=== PATIENT | female | born 1960 | race Caucasian/White ===

== ENCOUNTER 2017-01-20 13:37 | Observation (INO) ==
[2017-01-20] MEDS ORDERED: *HR* HYDROmorphone (PF) 1 MG/ML SYRINGE IVP PRN ×3 (13:54→17:09)
[2017-01-20] MEDS ORDERED: Ondansetron 4 MG/2 ML VIAL IVP PRN ×2 (13:54→16:34)
[2017-01-20] MEDS ORDERED: *HR* OxyCODONE/APAP 5/325 TABLET PO PRN ×2 (13:54→16:34)
[2017-01-20] MEDS ORDERED: Naloxone 0.4 MG/ML INJ IVP PRN (13:54)
[2017-01-20] MEDS ORDERED: *HR* Promethazine 25 MG/ML VIAL IVP PRN ×3 (13:54→17:11)
--- NOTE | 2017-01-20 14:02 | Urology History & Physical ---
Date of Encounter: 01/20/17 Time of Encounter: 14:00 Assessment and Plan (1) Right ureteral stone Current Visit: Yes Status: Acute 56-year-old woman presents with a right flank pain secondary to a 1 cm right ureteropelvic junction stone. She'll be admitted for pain control. Her pain is not adequately improved by tomorrow, we will proceed with a cystoscopy and right ureteral stent placement. All risks of the surgery were informed. Dr. Kumar will be managing her care. (2) Diverticulitis Current Visit: Yes Status: Acute Her CT showed concern for diverticulitis. We will continue her on ciprofloxacin and Flagyl. Qualifiers: Qualified Code(s): K57.92 - Diverticulitis of intestine, part unspecified, without perforation or abscess without bleeding History of Present Illness Chief complaint: Right flank pain HPI: Ms. Melendrez is a 56 year old female who presents with a four-day history of right flank pain. The pain became more severe yesterday and she was seen at an outside hospital. A CT scan was performed. The CT showed a 1 cm stone at the right ureteropelvic junction. In addition, she had smaller stones within the left kidney. She describes the pain as being sharp and radiates to the her right groin. She has never had kidney stones in the past. She reports nausea. In addition she was diagnosed with diverticulitis and was started on ciprofloxacin and Flagyl. Past Med Surg Social Fam HX - Past Medical History Medical history: hypertension - Past Surgical History Surgical History: , cholecystectomy - Social History Alcohol use: unknown Drug use: unknown Current living situation: Home Activity Level: Independent ambulation - Family History Mother Hx Family Genitourinary Disorders: No (No stones) Review of Systems - Constitutional no chills, no fever(s) - EENT Nose, mouth and throat: no dizziness - Cardiovascular no chest pain - Respiratory no dyspnea - Gastrointestinal nausea, vomiting - Genitourinary Genitourinary: flank pain, no hematuria - Musculoskeletal no back pain - Integumentary no erythema, no rash - Neurological no weakness - Psychiatric no suicidal ideation - Hematologic/Lymphatic no easy bleeding - Allergic/Immunologic no wheezing Exam - General physical appearance Present: well developed, well nourished, no distress - Eyes Absent: icteric - ENT Present: normal nares - Neck Present: trachea midline - Respiratory Present: normal respiratory effort - Cardiovascular Cardiovascular exam IM: RRR - Abdomen Abdomen: Present: soft Urology Results - Labs All other labs normal. - Imaging CT scan - abdomen: report reviewed, image reviewed CT scan - pelvis: report reviewed, image reviewed
[2017-01-20 14:31] LABS: Basophils % 0.2 %; Eosinophils # 0.1 K/mcL (0.0-0.6); Eosinophils % 1.2 %; Hematocrit 40.7 % (35.3-44.9); Hemoglobin 13.2 g/dL (11.5-15.4); Immature Granulocytes % 0.3 % (0-4); Lymphocytes # 1.5 K/mcL (0.6-4.6); Lymphocytes % 15.5 %; Mean Corpuscular HGB Conc 32.4 g/dL (31.6-35.5); Mean Corpuscular Hemoglobin 26.9 pg (28.0-33.3); Mean Corpuscular Volume 83.1 fL (83.0-100.0); Mean Platelet Volume 9.6 fL (9.4-12.4); Monocytes # 0.5 K/mcL (0.0-1.3); Monocytes % 5.4 %; Neutrophils # 7.3 K/mcL (1.6-8.9); Platelet Count 269 K/mcL (140-400); Red Cell Distribution Width 13.1 % (11.5-14.5); Segmented Neutrophils % 77.4 %
[2017-01-20 14:42] LABS: Calcium 9.7 mg/dL (8.6-10.8); Potassium 4.6 mEq/L (3.5-4.5)
[2017-01-20] MEDS: 0.9 % Sodium Chloride 1,000 ML IVC SCH (17:28)
[2017-01-20] MEDS: *HR* OxyCODONE/APAP 5/325 TABLET PO PRN ×2 (17:28→23:11)
[2017-01-20] MEDS: metroNIDAZOLE 500 MG TABLET PO SCH ×2 (17:39→20:07)
--- NOTE | 2017-01-20 19:16 | Anesthesia Evaluation PreOp ---
Date of Encounter: 01/20/17 Time of Encounter: 19:15 - Past History Planned Operation: cystoscopy/SABRINA Cardiac History: HTN Pulmonary History: Snore SENIOR USER EXPERIENCE ARCHITECT History: Denies Any Significant HX Other Medical History: Other (concern for diverticulitis on CT) Anesthesia History: No Prior Anesthetic Complications, Past Anesthesia (c/s, cholecyst) Alcohol Use: occasionally Drug use: none Medications and Allergies Ciprofloxacin HCl [Cipro] 500 mg PO BID 01/20/17 [History] Ergocalciferol (VITAMIN D2) [Vitamin D2] 50,000 unit PO QWEEK 01/20/17 [History] Lisinopril [Zestril] 20 mg PO BID 01/20/17 [History] MetroNIDAZOLE [Flagyl] 500 mg PO TID 01/20/17 [History] Ondansetron ODT [Zofran ODT] 4 mg PO Q8H PRN 01/20/17 [History] Oxycodone HCl/Acetaminophen [Percocet 5-325 mg Tablet] 1 each PO Q6H PRN [History] Allergies No Known Allergies Allergy (Verified 01/20/17 16:00) - Meds/Allergy Pre-op Review Medications Reviewed: Yes Allergies Reviewed: Yes Beta Blockers on Current Med List: No Anesthesia Results - Labs 01/20/17 14:20 01/20/17 14:20 Anesthesia Exam Height: 1.55 Weight: 77 NPO (# of Hours): >8 - HEENT Pupil (Motor): Pupils equal, EOMI Mallampati: IV (, small mouth) Oral Opening: Less than or equal to 3 (poor underbite) - SENIOR USER EXPERIENCE ARCHITECT LOC: Oriented SENIOR USER EXPERIENCE ARCHITECT Motor: Normal RUE, Normal LUE, Normal RLE, Normal LLE, Normal Face SENIOR USER EXPERIENCE ARCHITECT Sensory: Normal: RUE, LUE, RLE, LLE, Face - Cardiac Rhythm: Regular Murmur: None - Pulmonary Breath Sounds: bilateral Clear Respiratory Effort: Symmetrical Anesthesia Assess/Plan ASA Score: 2 (Recommend awake look for difficult airway) Modified [place] Scale for Level of Consciousness: Cooperative, oriented, and tranquil Anesthetic Plan: General Monitoring Plan: Standard Monitors Recovery Plan: PACU
[2017-01-20 20:47] LABS: Bilirubin,Urine Negative (Negative); Blood,Urine Negative (Negative); Clarity,Urine Cloudy (Clear); Color,Urine Dark Yellow (Yellow); Glucose,Urine (UA) Normal (Normal); Ketones,Urine Negative (Negative); Leukocyte Esterase,Urine Small (Negative); Nitrite,Urine Negative (Negative); PH,Urine 5.5 pH Units (5.0-8.0); Protein,Urine 30 mg/dL (Neg-Trace); Specific Gravity,Urine 1.023 (1.010-1.025); Urobilinogen,Urine Normal (Normal)
[2017-01-20 20:48] LABS: Bacteria,Urine None Seen per hpf (None-Few); Hyaline Casts,Urine None Seen per lpf (None-Few); Squamous Epithelial Cell,Urine Many per lpf (None-Few)
[2017-01-21] MEDS: 0.9 % Sodium Chloride 1,000 ML IVC SCH (02:56)
[2017-01-21] MEDS: metroNIDAZOLE 500 MG TABLET PO SCH (09:00)
[2017-01-21] MEDS ORDERED: Famotidine 20 MG/2 ML VIAL ONE (10:40)
[2017-01-21] MEDS ORDERED: *HR* Midazolam HCl 2 MG/2 ML VIAL ONE (11:20)
[2017-01-21] MEDS ORDERED: Ondansetron 4 MG/2 ML VIAL ONE (11:20)
[2017-01-21] MEDS ORDERED: Lidocaine -MPF 2% 2 ML VIAL ONE (11:20)
[2017-01-21] MEDS ORDERED: *HR* Propofol 200 MG/20 ML VIAL IVP ONE (11:20)
[2017-01-21] MEDS ORDERED: Dexamethasone 4 MG/ML VIAL ONE (11:20)
[2017-01-21] MEDS ORDERED: *HR* FentaNYL (PF) 100 MCG/2 ML VIAL ONE (11:20)
[2017-01-21] MEDS ORDERED: *HR* Promethazine 25 MG/ML VIAL IVP PRN ×2 (11:22→12:47)
[2017-01-21] MEDS ORDERED: *HR* HYDROmorphone (PF) 1 MG/ML SYRINGE IVP PRN ×2 (11:22→12:47)
[2017-01-21] MEDS ORDERED: Ringers Solution, Lactated 1,000 ML IVC SCH (11:30)
--- NOTE | 2017-01-21 11:33 | Operative Note ---
Date of procedure: 01/21/17 Pre-op diagnosis: right UPJ stone 1.1 cm and hydronephrosis Post-op diagnosis: same Procedure: right retrograde pyelogram and JJ stent placement. Anesthesia: GETA Surgeon: Monty Kumar Estimated blood loss (cc): 0 Condition: stable Disposition: PACU Procedure in Detail: PROCEDURE IN DETAIL: Patient was taken back to the operating room, positioned supine on the operating table. Anesthesia was applied without complication. They were moved into dorsal lithotomy. Careful attention was maintained to cushion all pressure points for patient's safety. They were prepped and draped in sterile fashion. Time-out was performed with the proper patient and procedure. A 21-Chinese rigid cystoscope was inserted into the bladder without difficulty. Systematic examination of bladder revealed no abnormalities. The ureteral orifice was cannulated using a 5-Chinese ureteral Catheter and a retrograde pyelogram was performed using Isovue. A filling defect was identified which corresponded to the stone. ZIP wire was placed through the 5 Chinese ureteral catheter. I placed a 4.8 x 26 ureteral stent. Curl was seen passed the stone in the middle calyx. She did have significant hydronephrosis in the upper and middle calyceal systems. Stone was radiodense. Bladder was drained and the procedure was stopped
--- NOTE | 2017-01-21 12:08 | Anesthesia Evaluation Post Op ---
Date of Encounter: 01/21/17 Time of Encounter: 12:10 - Vital Signs Vital Signs: Vital Signs/O2 Sat/Glucose, Most Current Temp Pulse Resp BP Pulse Ox 01/21/17 11:59 99.2 F 74 16 145/77 97 01/21/17 11:49 76 16 146/79 97 01/21/17 11:39 79 16 157/87 98 01/21/17 11:29 97.4 F L 88 14 157/92 94 L - Lungs Lungs: Clear Ascult./Percussion - Airway Airway: Non-obstructed - Cardiovascular Regular Rate - Mental Status Mental Status: Alert & Oriented, Answers Appropriately - Pain Pain Scale: 0 - Nausea Vomiting Nausea Vomiting: Not Present - Hydration Hydration: Ice chips - Discharge PostOp Status: Transfer Patient to floor
[2017-01-21] MEDS ORDERED: Naloxone 0.4 MG/ML INJ IVP PRN (12:47)
[2017-01-21] MEDS ORDERED: Ondansetron 4 MG/2 ML VIAL IVP PRN (12:47)
[2017-01-21] MEDS ORDERED: 0.9 % Sodium Chloride 1,000 ML IVC SCH (12:47)
[2017-01-21] MEDS ORDERED: *HR* OxyCODONE/APAP 5/325 TABLET PO PRN (12:47)
[2017-01-21] MEDS ORDERED: metroNIDAZOLE 500 MG TABLET PO SCH (15:00)
[2017-01-21 15:59] VITALS: BP 164/81
--- NOTE | 2017-01-21 18:07 | Discharge Summary ---
Date of Encounter: 01/21/17 Time of Encounter: 18:05 - Discharge Diagnosis (1) Right ureteral stone Priority: Primary Status: Resolved - Discharge Medications Prescriptions: Cefdinir [Omnicef] 300 mg PO BID #14 capsule Oxycodone HCl/Acetaminophen [Percocet 5-325 mg Tablet] 1 each PO Q6H PRN #15 tablet PRN Reason: Pain Phenazopyridine [Pyridium] 200 mg PO TID PRN #20 tablet PRN Reason: burning with urination Home Medications: Ergocalciferol (VITAMIN D2) [Vitamin D2] 50,000 unit PO QWEEK 01/20/17 [History] Lisinopril [Zestril] 20 mg PO BID 01/20/17 [History] Ondansetron ODT [Zofran ODT] 4 mg PO Q8H PRN 01/20/17 [History] Cefdinir [Omnicef] 300 mg PO BID #14 capsule 01/21/17 [Rx] Oxycodone HCl/Acetaminophen [Percocet 5-325 mg Tablet] 1 each PO Q6H PRN #15 tablet 01/21/17 [Rx] Phenazopyridine [Pyridium] 200 mg PO TID PRN #20 tablet 01/21/17 [Rx] Allergies/Adverse Reactions: Allergies No Known Allergies Allergy (Verified 01/20/17 16:00) Labs on day of discharge: Labs from last 24 hours 01/21/17 01/20/17 05:42 20:25 POC Glucose 102 H Urine Color Dark Yellow Urine Clarity Cloudy A Urine pH 5.5 Ur Specific [place] 1.023 Urine Protein 30 H Urine Glucose (UA) Normal Urine Ketones Negative Urine Blood Negative Urine Nitrite Negative Urine Bilirubin Negative Urine Urobilinogen Normal Ur Leukocyte Esterase Small H Urine Microscopic RBC 3-5 H Urine Microscopic WBC 5-15 H Ur Squamous Epith Cells Many H Urine Bacteria None Seen Hyaline Casts None Seen - Impressions ITS Impressions KUB X-Ray 01/20/17 13:56 IMPRESSION: Calcifications overlying the kidneys with a dominant 1 cm calcification in the region of the right renal pelvis. Unenhanced CT imaging of the abdomen and pelvis could be pursued for definitive assessment. D/ / 01/20/2017 20:16:18 Steve Taylor MD / Sharlene Golden Interpreting Provider: Steve Taylor MD Retrograde Pyelogram 01/21/17 00:00 IMPRESSION: Intraprocedural fluoroscopic spot images as above. See separate procedure report for more information. D/ / Jude Hermosillo MD / Jude Hermosillo MD Interpreting Provider: Jude Hemrosillo MD Date of admission: 01/20/17 13:44 Primary care physician: Saadia Pink MD Discharging clinician: Monty Kumar Anticipated date of discharge: 01/21/17 - Patient Status Disposition: Home, Self-Care Condition: Good Functional capacity at discharge: independent ambulation Overall status at discharge: patient is progressing back to baseline - Discharge Instructions Follow Up With: Saadia Pink MD [Primary Care Provider] - Monty Kumar MD [Partnered Physician] - (my office will call with cory for outpatient stone procedure.) Additional Instructions: Expect stent discomfort including urgency, frequency, burning, blood in the urine, flank pain during urination. This is normal. Call if excessive. My office will call to schedule outpatient stone procedure Okay to be off work until all management is completed Call if fever over 101. - Diet and Activity Activity: increase activity as tolerated Diet: advance to your usual diet - Hospital Course Hospital course: Ms. Melendrez is a 56 year old female 1 cm UPJ stone. s/p stent placement. doing better but still with some symptoms. plan to discharge with outpt OR management of the stone - Time Spent with Patient Total time spent providing and/or coordinating discharge services: Less than 30 minutes Exam Initial Vital Signs Temp Pulse Resp BP Pulse Ox 97.9 F 69 16 152/82 95 01/20/17 14:12 01/20/17 14:12 01/20/17 14:12 01/20/17 14:12 01/20/17 14:12 - General physical appearance Present: well developed, no distress - VTE Documentation of Mechanical Device: Intermittent pneumatic compression device
[2017-01-21] MEDS ORDERED: Lisinopril 20 MG TABLET PO SCH (21:00)
== END 2017-01-21 18:51 | disposition home or self-care (01) ==
LOC: 3BNU
PROVIDERS: ADMIT Urology; ATTEND Urology